=== PATIENT | female | born 1975 | race Caucasian/White ===

== ENCOUNTER → 2023-01-22 | Outpatient (CLI) | payer OTHER ==
[2023-01-22 18:15] LABS: Basophils # (A) 0.03 X 10*3/uL (0.00-0.10); Basophils % (A) 0.5 %; Eosinophils # (A) 0.07 X 10*3/uL (0.04-0.35); Eosinophils % (A) 1.1 %; HCT 38.8 % (37.2-46.3); HGB 12.5 g/dL (12.0-15.0); Immature Grans, Automated 0.2 %; Lymphocytes # (A) 1.99 X 10*3/uL (0.90-5.00); Lymphocytes % (A) 31.1 %; MCH 30.9 pg (27.0-32.0); MCHC 32.2 g/dL (32.0-37.0); MCV 95.8 fL (80.0-97.0); Monocytes # (A) 0.36 X 10*3/uL (0.20-1.00); Monocytes % (A) 5.6 %; NRBC Per 100 WBC 0 /100 WBCS (0.0-0.0); Neutrophils # (A) 3.94 X 10*3/uL (1.80-7.70); Neutrophils % (A) 61.5 %; Platelet Count 384 X 10*3/uL (140-440); RBC 4.05 X 10*6/uL (4.10-5.20); RDW 12.7 % (11.5-14.5)
[2023-01-22 18:28] LABS: African American GFR (CKD) 120.4 (60.0-200.0); Anion Gap 12.3 mmol/L (10.00-18.00); Blood Urea Nitrogen 10.4 mg/dL (9.0-27.0); Carbon Dioxide 23.7 mmol/L (20.0-27.5); Non-African American GFR(CKD) 103.9 (60.0-200.0); Potassium 4.5 mmol/L (3.5-5.5)
== END | disposition home or self-care (01) ==
LOC: LABPAT 01-21 10:30
PROVIDERS: ATTEND Obstetrics & Gynecology
DX: Z01.812 Encounter for preprocedural laboratory examination (principal); N25.9 Disorder resulting from impaired renal tubular function, unspecified
CPT/HCPCS: 36415; 80051; 82565; 82947; 84520; 85025; 87086

== ENCOUNTER 2023-01-28 08:20 | Inpatient (IN) | payer OTHER ==
[2023-01-24 15:07] VITALS: BMI 20.2
[~2023-01-28 08:20] MED LIST: DEXAMETHASONE SOD PHOSPHATE 4 MG/ML 1 ML VIAL IV ONE; HYDROmorphone 0.5 MG/0.5 ML SYRINGE IVP PRN; MIDAZOLAM 2 MG/2 ML VIAL IV PRN; ONDANSETRON 4 MG/2 ML VIAL IVP ONE
[2023-01-28] MEDS: LACTATED RINGERS 1,000 ML IV SCH ×2 (09:39→10:45)
[2023-01-28] MEDS: SCOPOLAMINE 1 MG/72 HR PATCH TRANSDERM ONE ×2 (09:50→14:22)
[2023-01-28] MEDS ORDERED: fentaNYL (PF) 50 MCG/ML 2 ML AMP IVP ONE (10:31)
[2023-01-28] MEDS ORDERED: SUCCINYLCHOLINE CHLORIDE 200 MG/10 ML VIAL IV ONE (10:41)
[2023-01-28] MEDS ORDERED: PROPOFOL 10 MG/ML 20 ML VIAL IV ONE (10:41)
[2023-01-28] MEDS ORDERED: ROCURONIUM 10 MG/ML (5 ML VIAL) IV ONE (10:41)
[2023-01-28] MEDS ORDERED: LIDOCAINE 2% INJ 20 MG/ML (2 ML VIAL) ONE (10:41)
[2023-01-28] MEDS ORDERED: fentaNYL (PF) 50 MCG/ML 2 ML AMP ONE (10:41)
[2023-01-28] MEDS ORDERED: MORPHINE SULFATE (PF) 0.3 MG/0.3 ML SYR ONE (10:41)
[2023-01-28] MEDS ORDERED: GLYCOPYRROLATE 0.2 MG/ML 2 ML VIAL ONE (10:41)
[2023-01-28] MEDS ORDERED: MIDAZOLAM 2 MG/2 ML VIAL ONE (10:41)
[2023-01-28] MEDS ORDERED: NEOSTIGMINE 1 MG/ML 10 ML VIAL ONE (10:41)
[2023-01-28] MEDS ORDERED: HYDROmorphone (PF) 1 MG/ML ONE (10:41)
[2023-01-28] MEDS ORDERED: NALOXONE 0.4 MG/ML 1 ML VIAL IV PRN (10:46)
[2023-01-28] MEDS ORDERED: diphenhydrAMINE 50 MG/ML 1 ML VIAL IVP PRN ×2 (10:46→12:24)
--- NOTE | 2023-01-28 10:49 | P.ANPRN ---
Procedure Note - Anesthesia - Epidural/Spinal Spinal Date of Procedure: 01/28/23 Procedure Start Time: 10:29 Procedure Stop Time: 10:41 Location of Patient: PreOp Indication: Analgesia Sedation Type: Sedate with meaningful contact maintained Preparation: Sterile Prep Position: Sitting Needle Guage: 25 Injectate: Duramorph 0.4 mg and Fentanyl 25 mcgs Blood Aspirated: No Pain Paresthesia on Injection Noted: No Events: Uneventful and Well Tolerated
[2023-01-28] MEDS ORDERED: ONDANSETRON 4 MG/2 ML VIAL IVP PRN (12:24)
[2023-01-28] MEDS ORDERED: SIMETHICONE 80 MG CHEWABLE PO PRN (12:24)
[2023-01-28] MEDS ORDERED: IBUPROFEN 600 MG TAB PO PRN (12:24)
[2023-01-28] MEDS ORDERED: METOCLOPRAMIDE 5 MG/ML 2 ML VIAL IVP PRN (12:24)
[2023-01-28] MEDS ORDERED: ZOLPIDEM 5 MG TAB PO PRN (12:24)
--- NOTE | 2023-01-28 12:24 | P.OP ---
Date of Procedure: 01/28/23 Preoperative Diagnosis: 20 week size fibroid uterus Postoperative Diagnosis: Same, bilateral hydrosalpinges, normal-appearing ovaries Procedure(s) Performed: Total abdominal hysterectomy, bilateral salpingectomies Anesthesia: CHAKA Surgeon: Isabella Chase [facility] Support #1: Jarrell Bertrand Estimated Blood Loss (ml): 250 IV fluids (ml): 1,000 Urine output (ml): 200 Pathology: other (Cervix and uterus, bilateral tubes) Condition: stable Disposition: PACU Description of Procedure: Patient is brought to the operating suite where a general anesthetic is administered after the spinal with Duramorph has been given in the preoperative area. She's placed in the dorsal supine position. Vaginal prep was performed along with thorough abdominal prep. Mendez catheter placed to direct drainage. Antibiotics given. The appropriate timeout was performed to assure proper patient and procedural identification. The abdomen is prepped and draped in the usual sterile fashion. A low transverse skin incision is made in this is carried down through the subcutaneous tissue to the fascia. Fascia is isolated, scored, extended bilaterally with curved Davila scissors. Peritoneum is next identified and incised, there is no bowel or bladder involvement. The large fibroid uterus is grasped with towel clamps for traction, and delivered through the incision. The bowel was packed and at all times Well from the operative f ield. The right round ligament is identified, clamped cut and suture ligated. A window was created and the infundibulopelvic ligament is clamped cut and suture ligated. The bladder flap is now developed with Metzenbaum scissors and at all times the bladder is Well from the operative field. Uterine vasculature on the right is skeletonized, clamped cut and suture ligated. Attention is now turned to the left side. The round ligament is identified, clamped cut and suture ligated. Again a window was created and the infundibulopelvic ligament is grasped with a Good clamp, clamped cut and ojeda ture ligated. Vascular pedicles are identified, clamped cut and suture ligated. Please note that 0 Vicryl is used for the entire procedure. 2 additional pedicles are taken inferior to the vessels. When I'm certain that the blood applied is secure, the uterus is taken off from the cervical stump, the stump is grasped with a martín clamp. The bladder is swept well from the cervical stump, Good clamps are used across the stump to the midline across the superior vaginal cough. Cervix is removed. 0 Vicryl sutures used now to tie these pedicles in a Ben stitch. The pelvis was generously irrigated and all vascular pedicles appear dry and intact. A [place] clamp is used in the right fallopian tube is grasped, Good clamp is clamped across the base of the tube, it is removed with a Davila scissor and a Ben stitch is placed with 0 Vicryl on the pedicle. Same procedure is carried out contralaterally. Bilateral ovaries appear within normal limits. The vaginal cough, bladder flap, and all pedicles are was again visualized. Surgical snow was placed on the ovaries across the cortex to aid in complete hemostasis. The peritoneum is allowed to close by secondary intention. The fa scia is closed in a running stitch of 0 Vicryl with over ligation in the midline. Subcutaneous tissue is clean and dry, reapproximated with 3-0 Vicryl in a running stitch. 4-0 undyed Monocryl is used in a subcuticular manner for final skin closure. Steri-Strips and Mastisol are applied. Urine is clear in the Mendez tube. Patient is brought back to the recovery room in very good condition with stable vital signs including blood pressure 111/65, pulse 97. All sponge needle and enhancement counts are correct.
[2023-01-28] MEDS: KETOROLAC 15 MG/ML 1 ML VIAL IVP PRN ×2 (12:43→18:38)
[2023-01-28 12:45] VITALS: RESP 16
[2023-01-29] MEDS: KETOROLAC 15 MG/ML 1 ML VIAL IVP PRN ×3 (00:16→13:09)
--- NOTE | 2023-01-29 08:01 | P.DS ---
Providers Date of admission: 01/28/23 08:20 Expected date of discharge: 01/29/23 Attending physician: Isabella Chase Primary care physician: [facility] Course: This is a 47-year-old female who presented with an increasingly symptomatic 20 week size fibroid uterus. Decision was made to proceed with total abdominal hysterectomy, bilateral salpingectomies, sparing the ovaries if feasible. Please see my dictated history and physical for details. Under my care yesterday patient underwent a total abdominal hysterectomy, bilateral salpingectomy, with spinal with Duramorph preoperatively and a general anesthetic. She did well intraoperatively, ovaries appeared normal and were left in situ. Estimated blood loss 250 mL's. Please see dictated operative note for details. This morning the patient is doing well. She is voiding, ambulating, passing flatus without difficulty. Vital signs are stable and she is afebrile. Incision is clean and dry, intact, Steri-Strips applied. No CVA tenderness. Active bowel sounds. Minimal pain. She is judged to be in very good condition for discharge home. She'll follow-up with me in the office in 2 weeks. I have reminded her no intercourse, tampons, douching, heavy lifting, or driving for 2 weeks. She will use [id number] Aleve or Advil as needed for pain. She will call with any fevers shakes or chills, foul smelling vaginal drainage, redness or drainage of the incision, with any pain not alleviated by [id number] products, or indeed with any concerns. Pathology report on the uterus is pending. Assessment: Doing well postoperative day #1 Patient Condition at Discharge: Good Plan - Discharge Summary Discharge Rx Participant: No New Discharge Prescriptions: No Action No Known Home Medications Discharge Medication List No Known Home Medications 01/24/23 [History] Follow up Appointment(s)/Referral(s): Isabella Chase MD [STAFF PHYSICIAN] - 2 Weeks Patient Instructions/Handouts: *Surgery [facility] - Scopalamine Patch Instructions Discharge Disposition: HOME SELF-CARE
[2023-01-29 08:02] VITALS: BP 98/65; PULSE 77; TEMP 98
[2023-01-29] MEDS: LACTATED RINGERS 1,000 ML IV SCH (08:03)
--- NOTE | 2023-01-29 08:51 | P.PN ---
Progress Note - Text Progress Note Date: 01/29/23 Postoperative day 1 status post Hysterectomy under general anesthesia with intrathecal Duramorph for postoperative analgesia.Pain is tolerable.The patient is doing well, there is mild generalized skin itching. The patient denies any paresthesia or weakness in the lower extremities .Pt denies any headache. There are no other anesthesia related complications. Further management as per the patient primary team.
[2023-01-29] MEDS ORDERED: ACETAMINOPHEN TAB 325 MG TAB PO PRN (12:25)
== END 2023-01-29 13:22 | disposition home or self-care (01) | DRG 519 ==
LOC: 2ORMAIN 08:20 → 4FBP 12:47
PROVIDERS: ADMIT Obstetrics & Gynecology; ATTEND Obstetrics & Gynecology
PROC: 0UT70ZZ Resection of Bilateral Fallopian Tubes, Open Approach (ICD-10-PCS; 2023-01-28)
PROC: 0UT90ZZ Resection of Uterus, Open Approach (ICD-10-PCS; principal; 2023-01-28 10:30)
DX: D25.9 Leiomyoma of uterus, unspecified (principal)
CPT/HCPCS: 81025; 86850; 86900; 86901; 88307